=== PATIENT | female | born 1935 | race Caucasian/White ===

== ENCOUNTER 2018-04-06 07:55 | Day surgery (SDC) | payer MEDICARE, MEDICAID ==
[2018-04-06 08:18] VITALS: BMI 25.0
[2018-04-06] MEDS ORDERED: Lactated Ringer's 500 ML IV SCH (09:30)
[2018-04-06] MEDS ORDERED: Lactated Ringer's 1,000 ML IV ONE (09:35)
[2018-04-06] MEDS ORDERED: Propofol 10 mg/ml Inj (20 ML) ONE (09:36)
--- NOTE | 2018-04-06 09:37 | CP.SDSHP ---
Same Day Surgery H & P - History Proposed Procedure: COLONSCOPY Pre-Op Diagnosis: SEE NOTES - Previous Medical/Surgical History Cardiac: Hypertension Pain: 2.Mild Pain - Allergies Allergies: Allergies No Known Allergies Allergy (Verified 04/06/18 08:19) - Physical Exam General Appearance: N Vital Signs: Vital Signs 04/06/18 08:20 Temperature 96.8 F L Pulse Rate 90 Respiratory 16 Rate Blood Pressure 150/84 O2 Sat by Pulse 97 Oximetry Mental Status: Alert & Oriented x3 Neuro: WNL Heart: Other Lungs: WNL GI: WNL - {Optional Preform as Required} Breast: WNL Abdomen: Other Rectal: Other Integument: WNL : WNL Ortho: WNL ENT: WNL - Impression Pt. Evaluated Today:Candidate for Anesthesia & Procedure: Yes - Date & Time Time: 09:37 Short Stay Discharge - Short Stay Discharge Admitting Diagnosis/Reason for Visit: COLON SCREENING Disposition: HOME/ ROUTINE
[2018-04-06] MEDS ORDERED: Belladonna-Phenobarbital PO STA (09:39)
[2018-04-06 10:14] VITALS: TEMP 98.6
[2018-04-06 10:47] VITALS: O2SAT 98
[2018-04-06 11:38] VITALS: BP 131/78; PULSE 88; RESP 16
== END 2018-04-06 11:15 | disposition home or self-care (01) ==
LOC: C.ENDO 07:55
PROVIDERS: ATTEND Specialist
DX: Z12.11 Encounter for screening for malignant neoplasm of colon (principal); K57.30 Diverticulosis of large intestine without perforation or abscess without bleeding; K64.8 Other hemorrhoids
CPT/HCPCS: 45380; 88305; J2704; J7120